=== PATIENT | male | born 1960 | race Caucasian/White ===

== ENCOUNTER 2017-11-01 17:34 | Emergency (ER) | payer OTHER ==
[~2017-11-01] VITALS: Ht 165.1 cm; Wt 75.3 kg
[~2017-11-01 17:34] MED LIST: ANTIVERT12.5 MG PO; GLIPIZIDE5 MG PO; METFORMIN ER500 M1 PO; METFORMIN HCL500 MG PO; METHIMAZOLE5 MG; PROPRANOLOL HCL20 MG PO
[2017-11-01 18:31] VITALS: Ht 165.1 cm; Wt 75.3 kg
[2017-11-01 20:59] LABS: BASOPHIL % 0.3 % (0-2); PLATELET COUNT 308 x10^3mcL (130-400); RED CELL DISTRIBUTION WIDTH 13.5 % (11.5-14.5)
[2017-11-01 21:05] LABS: CALCIUM 9.2 mg/dL (8.5-10.1); CARBON DIOXIDE 25.1 mmol/L (21-32); CHLORIDE SERUM 103 mmol/L (98-107); CREATININE SERUM 0.9 mg/dL (0.7-1.3); GFR1 > 60 mL/min; GLUCOSE SERUM 249 mg/dL (74-106); POTASSIUM SERUM 3.6 mmol/L (3.5-5.1); SODIUM SERUM 139 mmol/L (136-145)
[2017-11-01 21:07] LABS: UA SPECIFIC GRAVITY 1.015 (1.005-1.035); microscopic required? YES; urine erythrocyte TRACE (NEGATIVE)
[2017-11-01 21:10] LABS: ALBUMIN 3.7 g/dL (3.4-5.0); ALKALINE PHOSPHATASE 202 U/L (46-116); ALT/SGPT 26 U/L (16-63); AMYLASE 39 U/L (25-115); AST/SGOT 14 U/L (15-37); BILIRUBIN TOTAL 0.47 mg/dL (0.20-1.00); LIPASE 149 IU/L (73-393)
[2017-11-01 21:12] LABS: TOTAL PROTEIN, SERUM 8.4 g/dL (6.4-8.2)
[2017-11-01 22:43] VITALS: BP 132/83
== END 2017-11-01 22:44 | disposition home or self-care (01) ==
LOC: ED 17:34
PROVIDERS: Emergency Medicine
DX: R11.2 Nausea with vomiting, unspecified (principal); R21 Rash and other nonspecific skin eruption; T50.8X5A Adverse effect of diagnostic agents, initial encounter; I10 Essential (primary) hypertension; E11.9 Type 2 diabetes mellitus without complications; Y92.89 Other specified places as the place of occurrence of the external cause
CPT/HCPCS: 83880; J1200; J1885; J2765; J2930

== ENCOUNTER 2017-12-22 18:16 | Emergency (ER) | payer OTHER ==
[~2017-12-22] VITALS: Ht 167.6 cm; Wt 82.6 kg
[2017-12-23 02:04] VITALS: BP 146/96
== END 2017-12-23 02:04 | disposition home or self-care (01) ==
LOC: ED 18:16
DX: K59.00 Constipation, unspecified (principal); A08.4 Viral intestinal infection, unspecified; I10 Essential (primary) hypertension; E11.9 Type 2 diabetes mellitus without complications
CPT/HCPCS: J1885; J2765

== ENCOUNTER 2018-05-01 17:21 | Inpatient (IN) | payer MEDICAID ==
[~2018-05-01] VITALS: Ht 165.1 cm; Wt 89.3 kg
[2018-05-01 17:23] VITALS: Ht 165.1 cm; Wt 89.3 kg
[2018-05-01 20:00] LABS: BASOPHIL % 0.5 % (0-2); PLATELET COUNT 229 x10^3mcL (130-400)
[2018-05-01 20:07] LABS: UA SPECIFIC GRAVITY <=1.005 (1.005-1.035); microscopic required? YES; urine erythrocyte TRACE (NEGATIVE)
[2018-05-01 20:10] LABS: CALCIUM 8.9 mg/dL (8.5-10.1); CARBON DIOXIDE 28.7 mmol/L (21-32); CREATININE SERUM 1.5 mg/dL (0.7-1.3); POTASSIUM SERUM 3.9 mmol/L (3.5-5.1)
[2018-05-01 20:25] LABS: BILIRUBIN TOTAL 0.76 mg/dL (0.20-1.00); FREE T4 0.13 ng/dL (0.76-1.46)
[2018-05-01 20:26] LABS: TOTAL PROTEIN, SERUM 8.3 g/dL (6.4-8.2)
[2018-05-02 00:02] VITALS: BP 174/108
[2018-05-02 00:43] LABS: AMPHETAMINE QUAL UR NONE DETECTED (See below)
[2018-05-02 01:59] LABS: MAGNESIUM 1.9 mg/dL (1.8-2.4); PHOSPHOROUS 3.3 mg/dL (2.5-4.9)
[2018-05-02 02:11] LABS: CHOLESTEROL/HDL RATIO 5.3
[2018-05-02 02:53] LABS: FREE THYROXINE INDEX 0.1 ug/dL (1.4-4.5); T4(THYROXINE) < 0.5 ug/dL (4.7-13.3)
[2018-05-02 04:23] LABS: T3 TOTAL 0.14 ng/mL
[2018-05-02 05:44] VITALS: BP 138/84
[2018-05-02 08:45] VITALS: BP 145/101
[2018-05-02 10:33] LABS: CALCIUM 8.1 mg/dL (8.5-10.1); CARBON DIOXIDE 24.8 mmol/L (21-32); CHLORIDE SERUM 101 mmol/L (98-107); CREATININE SERUM 1.3 mg/dL (0.7-1.3); GFR1 > 60 mL/min; GLUCOSE SERUM 238 mg/dL (74-106); POTASSIUM SERUM 3.5 mmol/L (3.5-5.1); SODIUM SERUM 137 mmol/L (136-145)
[2018-05-02 10:34] LABS: PLATELET COUNT 216 x10^3mcL (130-400)
[2018-05-02 10:35] LABS: RED CELL DISTRIBUTION WIDTH 15.4 % (11.5-14.5)
[2018-05-02 11:19] LABS: MAGNESIUM 1.8 mg/dL (1.8-2.4); PHOSPHOROUS 3.1 mg/dL (2.5-4.9)
[2018-05-02 12:09] VITALS: BP 132/89
[2018-05-02 17:49] VITALS: BP 161/91
[2018-05-02 20:46] VITALS: BP 134/90
[2018-05-03] VITALS (7 sets, daily range): BP systolic 137–166; BP diastolic 82–109
[2018-05-03 05:56] LABS: BASOPHIL % 0.6 % (0-2); PLATELET COUNT 232 x10^3mcL (130-400)
[2018-05-03 06:34] LABS: CALCIUM 8.4 mg/dL (8.5-10.1); CARBON DIOXIDE 27.1 mmol/L (21-32); CHLORIDE SERUM 100 mmol/L (98-107); CREATININE SERUM 1.2 mg/dL (0.7-1.3); GFR1 > 60 mL/min; GLUCOSE SERUM 199 mg/dL (74-106); RED CELL DISTRIBUTION WIDTH 15.3 % (11.5-14.5); SODIUM SERUM 136 mmol/L (136-145)
[2018-05-03] MEDS ORDERED: SYN1 PO (15:48)
[2018-05-03] MEDS ORDERED: HYD25 PO (15:49)
[2018-05-03] MEDS ORDERED: ZES10 PO (15:49)
== END 2018-05-03 16:30 | disposition home or self-care (01) | DRG 427 ==
LOC: ED 17:21 → DU 23:00
PROVIDERS: Emergency Medicine; Internal Medicine
DX: E89.0 Postprocedural hypothyroidism (principal); N17.0 Acute kidney failure with tubular necrosis; M62.82 Rhabdomyolysis; E87.1 Hypo-osmolality and hyponatremia; E11.65 Type 2 diabetes mellitus with hyperglycemia; I10 Essential (primary) hypertension; H26.8 Other specified cataract; E78.5 Hyperlipidemia, unspecified; Z68.32 Body mass index [BMI] 32.0-32.9, adult; Z79.84 Long term (current) use of oral hypoglycemic drugs; Z83.3 Family history of diabetes mellitus
CPT/HCPCS: 83880; 84439; G0480; J1885; J7030; Q0092

== ENCOUNTER 2019-10-28 01:54 | Emergency (ER) | payer OTHER ==
[~2019-10-28] VITALS: Ht 175.3 cm; Wt 81.6 kg
[~2019-10-28 01:54] MED LIST changes: +HYD25 PO; +SYN1 PO; +ZES10 PO
[2019-10-28 02:03] VITALS: Ht 175.3 cm; Wt 81.6 kg
[2019-10-28 04:46] VITALS: BP 115/72
== END 2019-10-28 04:46 | disposition home or self-care (01) ==
LOC: ED 01:54
DX: F10.120 Alcohol abuse with intoxication, uncomplicated (principal); I10 Essential (primary) hypertension; E11.9 Type 2 diabetes mellitus without complications; E03.9 Hypothyroidism, unspecified

== ENCOUNTER 2020-04-27 14:01 | Emergency (ER) | payer OTHER ==
[~2020-04-27] VITALS: Ht 167.6 cm; Wt 83.5 kg
[2020-04-27 14:05] VITALS: Ht 167.6 cm; Wt 83.5 kg
[2020-04-27 15:40] LABS: BASOPHIL % 0.6 % (0-2); PLATELET COUNT 188 x10^3mcL (130-400); RED CELL DISTRIBUTION WIDTH 15.4 % (11.5-14.5)
[2020-04-27 15:55] LABS: CALCIUM 8.2 mg/dL (8.5-10.1); CARBON DIOXIDE 27.5 mmol/L (21-32); CHLORIDE SERUM 97 mmol/L (98-107); CREATININE SERUM 1.1 mg/dL (0.7-1.3); GFR1 > 60 mL/min; GLUCOSE SERUM 95 mg/dL (74-106); POTASSIUM SERUM 4.4 mmol/L (3.5-5.1); SODIUM SERUM 134 mmol/L (136-145)
[2020-04-27 15:59] LABS: ALBUMIN 3.8 g/dL (3.4-5.0); ALKALINE PHOSPHATASE 73 U/L (46-116); ALT/SGPT 42 U/L (16-63); AST/SGOT 34 U/L (15-37); BILIRUBIN TOTAL 0.3 mg/dL (0.20-1.00); LIPASE 188 IU/L (73-393)
[2020-04-27 16:01] LABS: TOTAL PROTEIN, SERUM 8.6 g/dL (6.4-8.2)
[2020-04-27 17:34] VITALS: BP 136/88
== END 2020-04-27 17:35 | disposition home or self-care (01) ==
LOC: ED 14:01
PROVIDERS: Emergency Medicine
DX: U07.1 COVID-19 (principal); B34.9 Viral infection, unspecified; R10.32 Left lower quadrant pain
CPT/HCPCS: J1885; U0003-CS